=== PATIENT | female | born 1990 | race Hispanic/Latino ===

== ENCOUNTER 2019-12-21 21:57 | Observation (INO) | payer OTHER ==
[~2019-12-21] VITALS: Ht 165.1 cm; Wt 96.6 kg
[2019-12-21] MEDS ORDERED: TETANUS/DIPHTHERIA TOX ADULT 0.5 ML SYR IM ONE (22:15)
[2019-12-21] MEDS ORDERED: LIDOCAINE 1% W/EPINEPHRINE 20 ML VIAL INJ ONE (22:15)
[2019-12-21] MEDS ORDERED: HYDROCODONE/APAP 5MG-325MG TAB PO ONE (22:15)
[2019-12-21] MEDS ORDERED: TETANUS/DIPHTHERIA TOX ADULT 0.5 ML SYR ONE (22:16)
[2019-12-21] MEDS ORDERED: LIDOCAINE 1% W/EPINEPHRINE 20 ML VIAL ONE (22:16)
--- NOTE | 2019-12-21 23:08 | Diagnostic Imaging Report ---
Exam: Right forearm 2 views, right wrist 2 views History: Tripped and fell, pain to right forearm Comparison: None. Findings: Wrist: Acute, transverse minimally displaced distal radial metaphyseal fracture with associated nondisplaced ulnar styloid avulsion fracture. Appropriate alignment between the distal radius, lunate, and capitate is maintained on the lateral radiograph. No additional displaced fracture or dislocation. Forearm: The proximal radius and ulna are intact. Overlying soft tissue swelling. Impression: Acute minimally displaced transverse distal radial metaphyseal fracture with associated nondisplaced ulnar styloid avulsion injury. Signed by: Dr. Perico Sow M.D. on 12/21/2019 11:06 PM
--- NOTE | 2019-12-21 23:12 | Diagnostic Imaging Report ---
Exam: Left femur, 2 views, left knee, 3 views, left tibia-fibula, 2 views History: Pain, fall Comparison: None. Findings: No acute, displaced fracture or dislocation. The hip and knee joint spaces are well-maintained. No knee joint effusion. Soft tissues are unremarkable. Impression: No acute osseous abnormalities. Signed by: Dr. Perico Sow M.D. on 12/21/2019 11:09 PM
[2019-12-21] MEDS ORDERED: CEFAZOLIN SOD 1 GM VIAL IV SCH (23:45)
[2019-12-22] MEDS ORDERED: ONDANSETRON HCL INJ 2MG/ML 2ML 2 MG/ML VIAL IV STA (00:01)
[2019-12-22] MEDS ORDERED: CEFAZOLIN SOD 1 GM/NS 50ML 100 ML IV ONE (00:06)
[2019-12-22] MEDS ORDERED: MORPHINE SULFATE INJ 4 MG/ML INJ 1ML IV ONE (00:15)
[2019-12-22] MEDS: LACTATED RINGER'S 1,000 ML IV SCH ×2 (00:45→03:44)
--- OUTSIDE RECORDS SUMMARY | 2019-12-22 00:47 | XMS REPORT ---
Author Author [facility] Address Unknown Phone Unavailable Care Team Providers Care Bottom Cager Name Role Phone Gold JEROME Unavailable Unavailable Problems This patient has no known problems. Allergies, Adverse Reactions, Alerts This patient has no known allergies or adverse reactions. Medications This patient has no known medications. Results Test Description Test Time Test Comments Text Results Atomic Results Result Comments FEMUR 2VIEW LT - [facility] 2019-12-21 23:06:00 [place] [address] Patient Name: MERI SY MR #: [id number] : 1990 Age/Sex: 29/F Req #: [id number] [facility] Physician: Ordered by: MILLY JEROME MD Report #: [id number] Location: [facility] Room/Bed: Procedure: [id number] [facility]/FEMUR 2VIEW LT - [facility] Exam Date: 12/21/19 Exam Time: 2230 REPORT STATUS: Signed Exam: Left femur, 2 views, left knee, 3 views, left tibia-fibula, 2 views History: Pain, fall Comparison: None. Findings: No acute, displaced fracture or dislocation. The hip and knee joint spaces are well-maintained. No knee joint effusion. Soft tissues are unremarkable. Impression: No acute osseous abnormalities. Signed by: Dr. Keira Dudley M.D. on 12/21/2019 11:09 PM Dictated By: KEIRA DUDLEY MD 08 Transcribed By: ALPHONSO on 12/21/192308 COPY TO: MILLY JEROME MD TIB/FIB 2 VW LT - [facility] 2019-12-21 23:06:00 [place] [address] Patient Name: MERI SY MR #: [id number] : 1990 Age/Sex: 29/F Req #: [id number] Adm Physician: Ordered by: MILLY JEROME MD Report #: [id number] Location: [facility] Room/Bed: Procedure: [id number] [facility]TIB[facility] 2 [facility]W LT [facility] Exam Date: 12/21/19 Exam Time: 2229 REPORT STATUS: Signed Exam: Left femur, 2 views, left knee, 3 views, left tibia-fibula, 2 views History: Pain, fall Comparison: None. Findings: No acute, displaced fracture or dislocation. The hip and knee joint spaces are well-maintained. No knee joint effusion. Soft tissues are unremarkable. Impression: No acute osseous abnormalities. Signed by: Dr. Keira Dudley M.D. on 12/21/2019 11:09 PM Dictated By: KEIRA DUDLEY MD 08 Transcribed By: ALPHONSO on 12/21/192308 COPY TO: MILLY JEROME MD KNEE 2 VIEW LT - [facility] 2019-12-21 23:06:00 [place] [address] Patient Name: MERI SY MR #: [id number] : 1990 Age/Sex: 29/F Req #: [id number] Adm Physician: Ordered by: MILLY JEROME MD Report #: [id number] Location: [facility] Room/Bed: Procedure: [id number] HOPD/KNEE 2 VIEW LT - [facility] Exam Date: 12/21/19 Exam Time: 0 REPORT STATUS: Signed Exam: Left femur, 2 views, left knee, 3 views, left tibia-fibula, 2 views History: Pain, fall Comparison: None. Findings: No acute, displaced fracture or dislocation. The hip and knee joint spaces are well-maintained. No knee joint effusion. Soft tissues are unremarkable. Impression: No acute osseous abnormalities. Signed by: Dr. Keira Dudley M.D. on 12/21/2019 11:09 PM Dictated By: KEIRA DUDLEY MD 08 Transcribed By: ALPHONSO on 12/21/192308 COPY TO: MILLY JEROME MD [facility] 3VW - [facility] 2019-12-21 23:03:00 [place] [address] Patient Name: MERI SY MR #: [id number] : 1990 Age/Sex: 29/F Req #: [id number] Adm Physician: Ordered by: MILLY JEROME MD Report #: [id number] Location: [facility] Room/Bed: Procedure: [id number] HOPD/WRIST 3VW RT - [facility] Exam Date: 12/21/19 Exam Time: 2230 REPORT STATUS: Signed Exam: Right forearm 2 views, right wrist 2 views History: Tripped and fell, pain to right forearm Comparison: None. Findings: Wrist: Acute, transverse minimally displaced distal radial metaphyseal fracture with associated nondisplaced ulnar styloid avulsion fracture. Appropriate alignment between the distal radius, lunate, and capitate is maintained on the lateral radiograph. No additional displaced fracture or dislocation. Forearm: The proximal radius and ulna are intact. Overlying soft tissue swelling. Impression: Acute minimally displaced transverse distal radial metaphyseal fracture with associated nondisplaced ulnar styloid avulsion injury. Signed by: Dr. Keira Dudley M.D. on 12/21/2019 11:06 PM Dictated By: KEIRA DUDLEY MD 05 Transcribed By: ALPHONSO on 12/21/192305 COPY TO: MILLY JEROME MD FOREARM 2 VIEW RT - [facility] 2019-12-21 23:03:00 [place] [address] Patient Name: MERI SY MR #: [id number] : 1990 Age/Sex: 29/F Req #: [id number] [facility] Physician: Ordered by: MILLY JEROME MD Report #: [id number] Location: [facility] Room/Bed: Procedure: [id number] HOPD/FOREARM 2 VIEW RT - [facility] Exam Date: 12/21/19 Exam Time: 2229 REPORT STATUS: Signed Exam: Right forearm 2 views, right wrist 2 views History: Tripped and fell, pain to right forearm Comparison: None. Findings: Wrist: Acute, transverse minimally displaced distal radial metaphyseal fracture with associated nondisplaced ulnar styloid avulsion fracture. Appropriate alignment between the distal radius, lunate, and capitate is maintained on the lateral radiograph. No additional displaced fracture or dislocation. Forearm: The proximal radius and ulna are intact. Overlying soft tissue swelling. Impression: Acute minimally displaced transverse distal radial metaphyseal fracture with associated nondisplaced ulnar styloid avulsion injury. Signed by: Dr. Keira Dudley M.D. on 12/21/2019 11:06 PM Dictated By: KEIRA DUDLEY MD 05 Transcribed By: ALPHONSO on 12/21/192305 COPY TO: MILLY JEROME MD
[2019-12-22] MEDS ORDERED: CEFAZOLIN SOD 1 GM VIAL IV ONE (01:00)
[2019-12-22] MEDS: ONDANSETRON HCL INJ 2MG/ML 2ML 2 MG/ML VIAL IV PRN ×2 (03:07→10:59)
[2019-12-22] MEDS: MORPHINE SULFATE INJ 4 MG/ML INJ 1ML IV PRN ×2 (03:07→10:58)
--- NOTE | 2019-12-22 03:24 | NUR ---
PT ARRIVED VIA EMS FROM [facility]. PT TRANSFERRED TO [facility]. VS OBTAINED AND DOCUMENTED. PT AWAKE AND ALERT. NO DISTRESS NOTED. RESP EVEN AND UNLABORED ON RA. PT C SPLINT TO R ARM C SLING IN PLACE. NORMAL COLOR NOTED TO FINGERS. DANIELLE WRAP TO L KNEE NOTED INTACT C MINIMAL AMOUNT OF DRIED BLOOD NOTED. DANIELLE WRAP CHANGED. NO ACTIVE BLEEDING NOTED. IVF STARTED PER ORDERS. CALLBELL PLACED WITHIN REACH. PT INSTRUCTED TO CALL FOR ASSISTANCE PRIOR TO GETTING OUT OF BED. PT ALSO INSTRUCTED TO REMAIN NPO PER ORDERS. VERBALIZED UNDERSTANDING.
[2019-12-22] MEDS ORDERED: CEFAZOLIN SOD 1 GM VIAL IV SCH (06:00)
[2019-12-22 07:44] LABS: BASOPHILS % 0.3 % (0.0-1.0); EOSINOPHILS # (AUTO) 0.1 (0.0-0.4); EOSINOPHILS % 0.8 % (0.0-6.0); HEMATOCRIT 36.7 % (34.2-44.1); HEMOGLOBIN 12.3 g/dL (12.0-16.0); LYMPHOCYTES # (AUTO) 2.5 (1.0-3.2); LYMPHOCYTES % 25.3 % (18.0-39.1); MEAN CORPUSCULAR HEMOGLOBIN 29.1 pg (28-32); MEAN CORPUSCULAR HGB CONC 33.5 g/dL (31-35); MEAN CORPUSCULAR VOLUME 86.8 fL (81-99); MONOCYTES # (AUTO) 0.8 (0.2-0.8); MONOCYTES % 7.8 % (4.4-11.3); NEUTROPHILS # (AUTO) 6.5 (2.1-6.9); NEUTROPHILS % 65.5 % (38.7-80.0); PLATELET COUNT 200 x10e3/uL (140-360); RED BLOOD COUNT 4.23 x10e6/uL (3.6-5.1)
[2019-12-22 07:48] LABS: INR 1.03; PROTHROMBIN TIME 14.1 seconds (11.9-14.5)
[2019-12-22 08:06] LABS: ANION GAP 13.7 mmol/L (8-16); BLOOD UREA NITROGEN 10 mg/dL (7-26); BUN/CREATININE RATIO 13 (6-25); CALCIUM 8.9 mg/dL (8.4-10.2); CARBON DIOXIDE 21 mmol/L (22-29); CHLORIDE 106 mmol/L (98-107); CREATININE, SERUM 0.76 mg/dL (0.57-1.11); EST GLOMERULAR FILTRATION RATE > 60 ML/MIN (60-); GLUCOSE 96 mg/dL (74-118); POTASSIUM 3.7 mmol/L (3.5-5.1); SODIUM 137 mmol/L (136-145)
--- NOTE | 2019-12-22 08:51 | NUR ---
Patient assisted to RR via wheelchair, patient stand and pivoted on unaffected leg. Patient removed pants and underwear and placed in gown. IVF infusing @ 125ml/hr.
--- NOTE | 2019-12-22 11:02 | NUR ---
Patient given 4mg morphine and 4mg zofran for pain 9/10 after using RR. UA collected and sent to lab.
[2019-12-22 11:16] LABS: PREGNANCY TEST, URINE NEGATIVE (NEGATIVE)
[2019-12-22 11:23] LABS: BILIRUBIN,URINE NEGATIVE (NEGATIVE); CLARITY,URINE CLEAR (CLEAR); COLOR,URINE YELLOW (YELLOW); KETONES,URINE NEGATIVE (NEGATIVE); LEUKOCYTE ESTERASE ,URINE NEGATIVE (NEGATIVE); NITRITE,URINE NEGATIVE (NEGATIVE); PROTEIN,URINE DIPSTICK NEGATIVE (NEGATIVE); URINE UROBILINOGEN 0.2 mg/dL (0.2 - 1)
[2019-12-22] MEDS ORDERED: BACITRACIN 50,000 UNIT VIAL ONE (11:41)
[2019-12-22 12:03] LABS: BACTERIA,URINE RARE /HPF; EPITHELIAL CELLS,URINE FEW /LPF; RBC,URINE 0-5 /HPF (0-5); WBC,URINE (MAN) 0-5 /HPF (0-5)
[2019-12-22] MEDS ORDERED: ONDANSETRON HCL INJ 2MG/ML 2ML 2 MG/ML VIAL IV PRN (13:30)
[2019-12-22] MEDS ORDERED: FENTANYL CITRATE/PF 100MCG/2 ML INJ ONE ×2 (13:45→15:03)
[2019-12-22] MEDS ORDERED: MIDAZOLAM HCL 2 MG/2 ML VIAL ONE (15:03)
--- NOTE | 2019-12-22 15:30 | NUR ---
PATIENT ARRIVED ON THE UNIT AT 1435 PER STRETCHER FROM PACU. PATIENT IS ALERT AND IN STABLE CONDITION WITH NO S/S OF RESPIRATORY DISTRESS. 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 PATIENT RECEIVED FROM PACU- PATIENT HAS CAST AND SLING APPLIED TO RIGHT WRIST/UPPER EXTREMITY; LEFT KNEE HAS DANIELLE-BANDAGE DRESSING APPLIED WITH IMMOBILIZER. PATIENT STATES OVERALL PAIN 8/10 BUT IS REFUSING ANY PAIN MEDICATION AT THIS TIME. IV ANTIBIOTIC INFUSING. BED ALARM APPLIED. CALL LIGHT IS WITHIN REACH, PATIENT INSTRUCTED TO CALL FOR ASSISTANCE NEEDED.
[2019-12-22] MEDS: SODIUM CHLORIDE 0.9% 1000ML 1,000 ML IV SCH ×2 (15:38→23:22)
[2019-12-22] MEDS: CEFAZOLIN SOD 1 GM/NS 50ML 50 ML IV SCH ×2 (15:38→23:26)
[2019-12-22 16:25] VITALS: BP 114/67
[2019-12-22] MEDS: HYDROCODONE/APAP 5MG-325MG TAB PO PRN ×2 (17:21→20:56)
[2019-12-22] MEDS ORDERED: ONDANSETRON HCL INJ 2MG/ML 2ML 2 MG/ML VIAL ONE (18:28)
[2019-12-22] MEDS ORDERED: PROPOFOL IV EMULSION 10 MG/ML 20 ML VIAL ONE (18:28)
[2019-12-22] MEDS ORDERED: LIDOCAINE HCL 2% LOCAL INJ 5 ML SDV VIAL INJ ONE (18:28)
[2019-12-22] MEDS ORDERED: DEXAMETHASONE SOD PHOS INJ 4 MG/ML VIAL ONE (18:28)
[2019-12-22] MEDS ORDERED: SEVOFLURANE INHAL SOLN 250 ML PEN BTL ONE (18:28)
--- NOTE | 2019-12-22 19:10 | NUR ---
Received patient awake in bed, call light within easy reach, advised to call anytime for assistance. Right arm on sling, left leg on immobilizer, Hemovac noted. Patient has no complaints at this time, will continue to monitor
--- NOTE | 2019-12-22 19:29 | NUR ---
PATIENT IN STABLE CONDITION WITH NO S/S OF RESPIRATORY DISTRESS. NO PAIN VOICED. IV FLUIDS INFUSING. CAST AND SLING NOTED TO RIGHT WRIST/UPPER EXTREMITY; LEFT KNEE HAS DANIELLE-BANDAGE AND IMMOBILIZER APPLIED. FAMILY MEMBERS PRESENT IN ROOM. CALL LIGHT IS WITHIN REACH, PATIENT INSTRUCTED TO CALL FOR ASSISTANCE NEEDED. BEDSIDE SHIFT REPORT GIVEN TO ONCOMING NURSE.
[2019-12-22 20:00] VITALS: BP 112/58
[2019-12-22 22:20] VITALS: BP 112/58
--- NOTE | 2019-12-22 23:33 | Operative Report ---
DATE OF PROCEDURE: 12/22/2019 SURGEON: Ramon Pichardo MD PREOPERATIVE DIAGNOSES: 1. Grade 1 open left knee joint. 2. Nondisplaced right distal radius fracture. POSTOPERATIVE DIAGNOSES: 1. Grade 1 open left knee joint. 2. Nondisplaced right distal radius fracture. OPERATION/PROCEDURE PERFORMED: 1. The patient underwent a closed reduction and percutaneous pinning of the right wrist fracture. 2. Irrigation and debridement of the left grade 1 open knee joint. FIELD INVESTIGATOR: There was no medical support assistant. ANESTHESIA: General endotracheal intubation anesthesia. IV FLUIDS: Per the anesthesia record. BRIEF DESCRIPTION OF THE PATIENT'S OPERATIVE PROCEDURE: Ms. Petit was taken to the operating room and placed in supine position on the operating table. Following induction of general anesthesia as well as endotracheal intubation, the patient's right upper extremity and left lower extremity were then examined under anesthesia. The right upper extremity was found to be contained within the sugar-tong splint. With the splint removed, she had bruising and ecchymosis involving the right wrist joint. Fluoroscopic evaluation of the right wrist demonstrated a minimally displaced right distal radius fracture. Examination of the left knee demonstrated a deep laceration to the superior lateral border of the knee adjacent to the patella. There was no active bleeding at the time of the procedure. The patient's right upper and left lower extremity were prepped and draped in standard surgical fashion. The case was begun by first reducing the patient's right wrist injury in a closed fashion. Two pins were then inserted from distal to proximal transfixing the fracture in its reduced position. The position of this pin as well as reduction of fracture site was then assessed using fluoroscopy and found to be appropriate. The pin sites were then dressed sterilely. Attention was then turned to the patient's left knee injury. A probe was used to probe the patient's wound and was found to communicate with the knee joint. A knife was used to extend the medial and lateral borders of the laceration to allow for greater exposure of the joint capsule. A roughly 1 cm section of the joint capsule was found to be involved. This was also opened to a greater degree. The quadriceps tendon was found to be intact. The knee was thoroughly irrigated with 3 L of bacitracin impregnated normal saline followed by 3 L of regular normal saline in a pulse lavage fashion. Devitalized tissue was also debrided sharply from the wound. A drain was placed within the knee joint. The extensor retinaculum was closed with #1 prolene suture in a [id number] fashion. The remaining soft tissues were closed in a multilayer fashion. Sterile dressings were applied as well as the knee immobilizer. A sugar-tong splint was then applied to the right upper extremity. The patient was then awakened and taken to the postanesthesia care unit in stable condition. MD SUMAYA Higgins/MODL /[id number]
[2019-12-23] VITALS: BP 109/64
[2019-12-23 04:00] VITALS: BP 108/68
[2019-12-23] MEDS: SODIUM CHLORIDE 0.9% 1000ML 1,000 ML IV SCH (05:51)
[2019-12-23] MEDS: HYDROCODONE/APAP 5MG-325MG TAB PO PRN ×2 (05:51→11:17)
[2019-12-23 06:51] LABS: BASOPHILS % 0.3 % (0.0-1.0); EOSINOPHILS % 0.4 % (0.0-6.0); HEMATOCRIT 37.8 % (34.2-44.1); HEMOGLOBIN 12.4 g/dL (12.0-16.0); LYMPHOCYTES # (AUTO) 2.6 (1.0-3.2); MEAN CORPUSCULAR HGB CONC 32.8 g/dL (31-35); MEAN CORPUSCULAR VOLUME 88.3 fL (81-99); MONOCYTES # (AUTO) 0.8 (0.2-0.8); MONOCYTES % 7.4 % (4.4-11.3); NEUTROPHILS # (AUTO) 7.3 (2.1-6.9); NEUTROPHILS % 67.6 % (38.7-80.0); PLATELET COUNT 193 x10e3/uL (140-360); RED BLOOD COUNT 4.28 x10e6/uL (3.6-5.1); RED CELL DISTRIBUTION WIDTH 12.8 % (11.7-14.4)
[2019-12-23 07:08] LABS: INR 1.03; PROTHROMBIN TIME 14.1 seconds (11.9-14.5)
[2019-12-23 07:13] LABS: ANION GAP 10.7 mmol/L (8-16); BLOOD UREA NITROGEN 10 mg/dL (7-26); BUN/CREATININE RATIO 14 (6-25); CALCIUM 8.9 mg/dL (8.4-10.2); CARBON DIOXIDE 20 mmol/L (22-29); CHLORIDE 108 mmol/L (98-107); EST GLOMERULAR FILTRATION RATE > 60 ML/MIN (60-); GLUCOSE 100 mg/dL (74-118); POTASSIUM 3.7 mmol/L (3.5-5.1); SODIUM 135 mmol/L (136-145)
--- NOTE | 2019-12-23 07:26 | NUR ---
walking rounds done with ulisses RN, call light within easy reach
[2019-12-23 08:00] VITALS: BP 112/74
[2019-12-23 08:24] VITALS: BP 112/74
[2019-12-23] MEDS: CEFAZOLIN SOD 1 GM/NS 50ML 50 ML IV SCH (08:25)
--- NOTE | 2019-12-23 10:05 | NUR ---
dr rodriges at bedside, hemovac drained removed, no drainage in hemovac
[2019-12-23 12:00] VITALS: BP 109/63
[2019-12-23] MEDS ORDERED: XARELTO10 MG ×2 (13:02→13:03)
[2019-12-23] MEDS ORDERED: TYLENOL WITH C1 EACH PO (13:04)
[2019-12-23] MEDS ORDERED: KEFLEX500 MG PO (13:05)
[2019-12-23] MEDS ORDERED: LEVAQUIN500 MG PO (13:05)
[2019-12-23] MEDS ORDERED: CEFAZOLIN SOD 2 GM/D5W 50ML 50 ML IV SCH (18:00)
== END 2019-12-23 14:32 | disposition home or self-care (01) ==
LOC: FSED 21:57 → ERHOLD 12-22 00:17 → UNDOADMOB 12-22 00:17 → ERHOLD 12-22 03:17 → OR 12-22 11:37 → PACU V 12-22 13:24 → MED/SURG3 12-22 14:35
PROVIDERS: ADMIT Specialist; ATTEND Specialist
DX: S82.002B Unspecified fracture of left patella, initial encounter for open fracture type I or II (principal); S52.501A Unspecified fracture of the lower end of right radius, initial encounter for closed fracture
CPT/HCPCS: 25606; 27310; 36415 ×2; 73090; 73110; 73552; 73560; 73590; 76000; 80048 ×2; 81001; 81025; 85025 ×2; 85610 ×2; 90471; 90714; 97110; 97116; 97139; 97161; 97530; 99284; C1713; G0378 ×2; J0690 ×3; J1100; J2001; J2250; J2270; J2405; J2704; J3010; J7030 ×2; J7121

== ENCOUNTER → 2020-01-23 | Outpatient (RCR) | payer OTHER ==
[~2020-01-23] MED LIST: KEFLEX500 MG PO; LEVAQUIN500 MG PO; TYLENOL WITH C1 EACH PO; XARELTO10 MG
== END ==
LOC: PT 01-12 12:53
PROVIDERS: ATTEND Specialist
DX: M25.561 Pain in right knee (principal); M25.661 Stiffness of right knee, not elsewhere classified; M62.81 Muscle weakness (generalized); R26.9 Unspecified abnormalities of gait and mobility
CPT/HCPCS: 97110 ×4; 97162; G0283 ×3

== ENCOUNTER 2020-02-21 11:00 | Outpatient (RCR) | payer OTHER | END 2020-02-22 | LOC: PT 11:00 | PROVIDERS: ATTEND Specialist | DX: M25.562 Pain in left knee (principal); M25.462 Effusion, left knee; M25.662 Stiffness of left knee, not elsewhere classified; R26.9 Unspecified abnormalities of gait and mobility; M62.81 Muscle weakness (generalized) | CPT/HCPCS: 97110 ×7; 97139; G0283 ×3 ==

== ENCOUNTER 2020-03-13 14:00 | Outpatient (RCR) | payer OTHER | END 2020-03-24 | LOC: OT 14:00 | PROVIDERS: ATTEND Specialist | DX: S62.101A Fracture of unspecified carpal bone, right wrist, initial encounter for closed fracture (principal); M62.81 Muscle weakness (generalized); M25.462 Effusion, left knee; M25.562 Pain in left knee; M25.662 Stiffness of left knee, not elsewhere classified; R26.9 Unspecified abnormalities of gait and mobility ==